=== PATIENT | female | born 1970 | race Caucasian/White ===

== ENCOUNTER 2017-11-09 11:32 | Emergency (ER) | payer BC, MEDICAID ==
--- NOTE | 2017-11-09 13:25 | EDM.PDOC ---
ED HPI GENERAL MEDICAL PROBLEM - General Chief Complaint: Chest Pain Stated Complaint: CHEST PAIN Time Seen by Provider: 11/09/17 11:46 Source of Information: Reports: Patient History Limitations: Reports: No Limitations - History of Present Illness INITIAL COMMENTS - FREE TEXT/NARRATIVE: The patient presents with chest pain. She was doing push ups last night and she felt something pop in her back and the pain radiated to her chest. She had no shortness of breath with it. She says it hurts worse to take a deep breath. She has no fever, chills, cough, abdominal pain, nausea or vomiting. She has no history of heart disease, HTN, hypercholesterolemia, or diabetes. She went to her chiropractor and he did an adjustment and she feels better but he had the patient to come in to be seen. Onset: Sudden Duration: Day(s): (Last night) Location: Reports: Chest Quality: Reports: Sharp Severity: Mild Improves with: Reports: None Worsens with: Reports: Breathing Associated Symptoms: Reports: Chest Pain. Denies: Cough, Fever/Chills, Headaches, Nausea/Vomiting, Shortness of Breath Upper Chest Pain Score (Numeric/FACES): 3 - Related Data Allergies Allergy/AdvReac Type Severity Reaction Status Date / Time No Known Allergies Allergy Verified 11/09/17 11:45 Home Meds: Home Meds Ascorbate Calcium/Bioflavonoid [Emely-C 500 MG] 1,000 mg PO DAILY 11/09/17 [ History] Ca Carb/D3/Mag Ox/Toilet Attendant/Joe/Zn [Caltrate+D3 Plus Mineral Minis] 1 tab PO DAILY [History] Cyanocobalamin (Vitamin B-12) [Vitamin B-12] 0 mg PO DAILY 11/09/17 [History] Multivitamin [Multi-Day Vitamins] 1 tab PO DAILY 11/09/17 [History] Past Medical History HEENT History: Reports: Cataract, Impaired Vision Other HEENT History: wears eyeglasses. Respiratory History: Reports: Bronchitis, Recurrent Genitourinary History: Reports: UTI, Recurrent [employer] History: Reports: Psychiatric History: Reports: Anxiety - Infectious Disease History Infectious Disease History: Reports: Chicken Pox, Measles - Past Surgical History HEENT Surgical History: Reports: Cataract Surgery, Retinal Social & Family History - Tobacco Use Smoking Status *Q: Never Smoker Second Hand Smoke Exposure: No - Caffeine Use Caffeine Use: Reports: None - Recreational Drug Use Recreational Drug Use: No ED ROS GENERAL - Review of Systems Review Of Systems: See Below Constitutional: Reports: No Symptoms HEENT: Reports: No Symptoms Respiratory: Reports: No Symptoms Cardiovascular: Reports: Chest Pain Endocrine: Reports: No Symptoms GI/Abdominal: Reports: No Symptoms : Reports: No Symptoms Musculoskeletal: Reports: No Symptoms Skin: Reports: No Symptoms ED EXAM, GENERAL - Physical Exam Exam: See Below Exam Limited By: No Limitations General Appearance: Alert, No Apparent Distress Ears: Normal External Exam Nose: Normal Inspection Head: Atraumatic, Normocephalic Neck: Normal Inspection Respiratory/Chest: No Respiratory Distress, Lungs Clear, Normal Breath Sounds Cardiovascular: Regular Rate, Rhythm, No Edema, No Murmur GI/Abdominal: Soft, Non-Tender, No Organomegaly, No Mass Back Exam: Normal Inspection Extremities: Normal Inspection EKG INTERPRETATION EKG Date: 11/09/17 Time: 12:10 Rhythm: Other (sinus bradycardia) Rate (Beats/Min): 58 [place]: Normal P-Wave: Present QRS: RBBB ST-T: Elevated (normal early reppol) QT: Normal Course - Vital Signs Last Recorded V/S: Last Vital Signs Temp 98.2 F 11/09/17 11:41 Pulse 70 11/09/17 11:41 Resp 17 11/09/17 11:41 BP 126/80 11/09/17 11:41 Pulse Ox 100 11/09/17 11:41 - Orders/Labs/Meds Orders: Active Orders 24 hr Category Date Time Status Cardiac Monitoring [RC] . DIRECTED Care 11/09/17 12:03 Active EKG Documentation Completion [RC] STAT Care 11/09/17 12:03 Active Chest 2V [CR] Stat Exams 11/09/17 12:03 Taken Labs: Laboratory Tests 11/09/17 11/09/17 11/09/17 Range/Units 11:50 11:50 11:50 WBC 4.42 (3.98-10.04) K/mm3 RBC 4.41 (3.98-5.22) M/mm3 Hgb 14.3 (11.2-15.7) gm/L Hct 42.8 (34.1-44.9) % MCV 97.1 H (79.4-94.8) fl MCH 32.4 H (25.6-32.2) pg MCHC 33.4 (32.2-35.5) g/dl RDW Std Deviation 43.6 (36.4-46.3) fL Plt Count 301 (182-369) K/mm3 MPV 9.4 (9.4-12.3) fl Neut % (Auto) 48.8 (34.0-71.1) % Lymph % (Auto) 36.0 (19.3-51.7) % [place] % (Auto) 9.7 (4.7-12.5) % Eos % (Auto) 4.8 (0.7-5.8) Baso % (Auto) 0.7 (0.1-1.2) % Neut # (Auto) 2.16 (1.56-6.13) K/mm3 Lymph # (Auto) 1.59 (1.18-3.74) K/mm3 [place] # (Auto) 0.43 H (0.24-0.36) K/mm3 Eos # (Auto) 0.21 (0.04-0.36) K/mm3 Baso # (Auto) 0.03 (0.01-0.08) K/mm3 D-Dimer, Quantitative 0.26 (0.19-0.50) mg/L Sodium 139 (136-145) mEq/L Potassium 4.0 (3.5-5.1) mEq/L Chloride 104 (98-107) mEq/L Carbon Dioxide 27 (21-32) mEq/L Anion Gap 12.0 (5-15) BUN 11 (7-18) mg/dL Creatinine 0.9 (0.55-1.02) mg/dL Est Cr Clr Drug Dosing 61.18 mL/min Estimated GFR (MDRD) > 60 (>60) mL/min BUN/Creatinine Ratio 12.2 L (14-18) Glucose 88 (74-106) mg/dL Calcium 9.4 (8.5-10.1) mg/dL Total Bilirubin 1.6 H (0.2-1.0) mg/dL AST 33 (15-37) U/L ALT 30 (14-59) U/L Alkaline Phosphatase 69 (46-116) U/L Troponin I < 0.017 (0.00-0.056) ng/mL Total Protein 7.6 (6.4-8.2) g/dl Albumin 4.4 (3.4-5.0) g/dl Globulin 3.2 gm/dL Albumin/Globulin Ratio 1.4 (1-2) - Re-Assessments/Exams Free Text/Narrative Re-Assessment/Exam: 11/09/17 13:34 I ordered an EKG, CXR and labs. Her EKG shows a sinus bardycardia with no acute changes. Her CXR looks good. Her CBC and CMP look good. Her troponin is negative. She feels good. I feel this is chest wall pain. I will discharge her home. Departure - Departure Time of Disposition: 13:40 Disposition: Home, Self-Care 01 Condition: Good Clinical Impression: Atypical chest pain Referrals: [facility] INDUSTRIAL PSYCHOLOGIST [Primary Care Provider] - Additional Instructions: Take tylenol or motrin for pain. Please return if you are worse. - My Orders Last 24 Hours: My Active Orders 11/09/17 12:03 Cardiac Monitoring [RC] . DIRECTED EKG Documentation Completion [RC] STAT Chest 2V [CR] Stat - Assessment/Plan Last 24 Hours: My Active Orders 11/09/17 12:03 Cardiac Monitoring [RC] . DIRECTED EKG Documentation Completion [RC] STAT Chest 2V [CR] Stat
--- NOTE | 2017-11-09 16:37 | CR ---
Chest: Two views of the chest were obtained. Comparison: No prior chest x-ray available. Heart size and mediastinum are normal. Lungs are clear but hyperinflated. Mild scoliosis is noted within the spine. Impression: 1. Emphysematous change. 2. Nothing acute is appreciated. Diagnostic code #2
== END 2017-11-09 13:50 | disposition home or self-care (01) ==
LOC: JD.ED 11:32
DX: R07.89 Other chest pain (principal); Z79.899 Other long term (current) drug therapy
CPT/HCPCS: 36415; 71046; 71046-26; 80053; 84484; 85025; 85379; 93005; 93010; 99284-25; 99285-25

== ENCOUNTER 2018-08-24 11:10 | Day surgery (SDC) | payer BC ==
[~2018-08-24 11:10] MED LIST: Lidocaine 1%/Sod Bicarbonate in NS 8.4% 1 ML Syringe IDERM PRN; Sodium Chloride 0.9% 10 ML Syringe FLUSH PRN
[2018-08-24] MEDS ORDERED: Midazolam 1 MG/ML 2 ML SDV ONE (11:17)
[2018-08-24] MEDS ORDERED: Lidocaine 1% 4 ML ONE (11:17)
[2018-08-24] MEDS ORDERED: Propofol 200 MG/20 ML SDV ONE ×4 (11:17→13:33)
[2018-08-24] MEDS ORDERED: fentaNYL 100 MCG/2 ML SDV ONE (11:17)
[2018-08-24] MEDS: Lactated Ringers 1,000 ML IV SCH ×2 (11:40→14:49)
--- NOTE | 2018-08-24 11:56 | PCM.PREANE ---
Preanesthetic Assessment - Procedure Proposed Procedure: screen colonoscopy - Anesthesia/Transfusion/Family Hx Anesthesia History: Prior Anesthesia Without Reaction Type of Anesthesia Reaction: Other (see below) (took a long time to wake up) Family History of Anesthesia Reaction: No Transfusion History: No Prior Transfusion(s) - Review of Systems General: No Symptoms Pulmonary: No Symptoms Cardiovascular: No Symptoms Gastrointestinal: No Symptoms Neurological: No Symptoms Other: Reports: None - Physical Assessment NPO Status Date: 08/24/18 NPO Status Time: 04:00 O2 Sat by Pulse Oximetry: 100 Respiratory Rate: 16 Vital Signs: Last Vital Signs Temp 99.2 F 08/24/18 11:20 Pulse 92 08/24/18 11:20 Resp 16 08/24/18 11:20 BP 109/71 08/24/18 11:20 Pulse Ox 100 08/24/18 11:20 Height: 5 ft 8 in Weight: 49.442 kg ASA Class: 1 Mental Status: Alert & Oriented x3 Airway Class: Mallampati = 1 Dentition: Reports: Normal Dentition Thyro-Mental Finger Breadths: 3 Mouth Opening Finger Breadths: 3 ROM/Head Extension: Full Lungs: Clear to Auscultation, Normal Respiratory Effort Cardiovascular: Regular Rate, Regular Rhythm - Allergies Allergies/Adverse Reactions: Allergies Allergy/AdvReac Type Severity Reaction Status Date / Time No Known Allergies Allergy Verified 08/23/18 15:10 - Blood Blood Available: No - Acknowledgements Anesthesia Type Planned: MAC Pt an Appropriate Candidate for the Planned Anesthesia: Yes Alternatives and Risks of Anesthesia Discussed w Pt/Guardian: Yes Pt/Guardian Understands and Agrees with Anesthesia Plan: Yes PreAnesthesia Questionnaire HEENT History: Reports: Cataract, Impaired Vision Other HEENT History: wears eyeglasses. Cardiovascular History: Reports: None Respiratory History: Reports: Bronchitis, Recurrent Gastrointestinal History: Reports: None Genitourinary History: Reports: None, UTI, Recurrent [employer] History: Reports: Other OB/BYN History: irregular menses, menorrhagia Musculoskeletal History: Reports: None Neurological History: Reports: None Psychiatric History: Reports: None Endocrine/Metabolic History: Reports: None Hematologic History: Reports: None Immunologic History: Reports: None Oncologic (Cancer) History: Reports: None Dermatologic History: Reports: None - Infectious Disease History Infectious Disease History: Reports: Chicken Pox, Measles - Past Surgical History Head Surgeries/Procedures: Reports: None HEENT Surgical History: Reports: Cataract Surgery, Retinal Cardiovascular Surgical History: Reports: Varicose GI Surgical History: Reports: None Female Surgical History: Reports: None Male Surgical History: Reports: None Endocrine Surgical History: Reports: None Neurological Surgical History: Reports: None Musculoskeletal Surgical History: Reports: None Oncologic Surgical History: Reports: None Dermatological Surgical History: Reports: None - SUBSTANCE USE Smoking Status *Q: Never Smoker Tobacco Use Within Last Twelve Months: No Second Hand Smoke Exposure: No Days Per Week of Alcohol Use: 0 Recreational Drug Use History: No - HOME MEDS Home Medications: Home Meds Ascorbate Calcium/Bioflavonoid [Emely-C 500 MG] 1,000 mg PO DAILY 11/09/17 [ History] Multivitamin [Multi-Day Vitamins] 1 tab PO DAILY 11/09/17 [History] Ascorbic Acid [Vitamin C] 500 mg PO DAILY 08/23/18 [History] Calcium Carbonate/Vitamin D3 [Liquid Calcium with Vitamin D] 1 cap PO BID [History] Folic Acid 4,000 mcg PO DAILY 08/23/18 [History] - CURRENT (IN HOUSE) MEDS Current Meds: Current Medications Lactated Ringer's (Ringers, Lactated) 1,000 mls @ 125 mls/hr IV ASDIRECTED ANGELA Stop: 08/24/18 23:00 Last Admin: 08/24/18 11:40 Dose: 125 mls/hr Lidocaine/Sodium Bicarbonate (Buffered Lidocaine 1% In Ns 8.4%) 0.25 ml IDERM ONETIME PRN PRN Reason: Prior to IV Start Stop: 08/24/18 18:00 Sodium Chloride (Saline Flush) 10 ml FLUSH ASDIRECTED PRN PRN Reason: Keep Vein Open Stop: 08/24/18 18:00 Discontinued Medications Fentanyl (Sublimaze) Confirm Administered Dose 100 mcg .ROUTE .STK-MED ONE Stop: 08/24/18 11:18 Lidocaine HCl (Xylocaine-Mpf 1%) Confirm Administered Dose 4 mls @ as directed .ROUTE .STK-MED ONE Stop: 08/24/18 11:18 Midazolam HCl (Versed 1 Mg/Ml) Confirm Administered Dose 2 mg .ROUTE .STK-MED ONE Stop: 08/24/18 11:18 Propofol (Diprivan 20 Ml) Confirm Administered Dose 200 mg [place]TE [place] Stop: 08/24/18 11:18
--- NOTE | 2018-08-24 13:53 | PCM48HPAN ---
Post Anesthesia Note - EVALUATION WITHIN 48HRS OF ANESTHETIC Vital Signs in Normal Range: Yes Patient Participated in Evaluation: Yes Respiratory Function Stable: Yes Airway Patent: Yes Cardiovascular Function Stable: Yes Hydration Status Stable: Yes Pain Control Satisfactory: Yes Nausea and Vomiting Control Satisfactory: Yes Mental Status Recovered: Yes Pulse Rate: 60 SaO2: 99 Resp Rate: 16 Temperature: 98 F Blood Pressure: 96/54
[2018-08-24] MEDS ORDERED: Ondansetron 4 MG/2 ML SDV ONE (14:40)
[2018-08-24] MEDS ORDERED: Ondansetron 4 MG/2 ML SDV IVPUSH ONE (14:46)
--- NOTE | 2018-08-25 08:25 | OR ---
DATE OF OPERATION: 08/24/2018 SURGEON: Kolton Hammond MD PREOPERATIVE DIAGNOSIS: Family history of colon cancer, colorectal cancer screening. POSTOPERATIVE DIAGNOSIS: Family history of colon cancer, colorectal cancer screening. OPERATION PERFORMED: Screening colonoscopy. ANESTHESIA: MAC. FINDINGS: She has an extraordinarily redundant left colon. At some point, I had introduced the entirety of the colonoscope into the colon and I had not even reached her transverse colon. We tried multiple re-positions and we were eventually able to advance the scope to the cecum with gentle forward pressure. She has an excellent bowel prep. PATHOLOGY: None. ESTIMATED BLOOD LOSS: None. COMPLICATIONS: None. DISPOSITION: Stable at the end of the procedure. INDICATION: The patient is a 48-year-old female with 2 second-degree relatives with colon cancer in their 70s. She was offered a screening colonoscopy. She has never had a colonoscopy before. She is asymptomatic. She was fully informed of the major risks, benefits, and alternatives. The risks include, but are not limited to perforation of the colon, bleeding, the risks of anesthesia, and the possibility of further surgery. She gave informed consent to what was done. DESCRIPTION OF PROCEDURE: She was placed in the left lateral decubitus position in the Gastro suite. She was given monitored anesthesia. A digital rectal exam was performed, this was unremarkable. I introduced the colonoscope into the rectum with copious lubrication. I advanced the scope with gentle forward pressure keeping the lumen in view at all times. I had quite a lot of difficulty advancing the scope beyond the splenic flexure due to an extraordinarily redundant left colon. Two team members applied pressure to the anterior abdominal wall and several attempts were made to reach the transverse colon and this was unsuccessful. I eventually abandoned the left lateral decubitus position and placed her in a prone position with anterior abdominal pressure. I advanced the scope several times. I gave it 3 more tries and eventually I was able to reach the cecum. I documented the cecum photographically. It took over an hour to reach the cecum. I slowly investigated the mucosa of the colon from the cecum back to the anus in an exam lasting 12 minutes. There were no polyps identified. No mucosal lesions. No strictures. No diverticulosis. At the end of the procedure, the scope was withdrawn. Air was evacuated on the way out. PLAN: Because of the 2 second-degree relatives with colon cancer, she is at mild increased risk, placing her on a 5-year plan. JOSE MARIA /[id number]
== END 2018-08-24 15:40 | disposition home or self-care (01) ==
LOC: JD.SDS 11:10
PROVIDERS: ATTEND Surgery
DX: Z12.11 Encounter for screening for malignant neoplasm of colon (principal); Z80.0 Family history of malignant neoplasm of digestive organs; Z87.42 Personal history of other diseases of the female genital tract
CPT/HCPCS: 00812; J2001; J2250; J2405; J2704; J3010; J7120

== ENCOUNTER 2022-10-15 21:24 | Emergency (ER) | payer OTHER ==
[2022-10-15] MEDS ORDERED: Lidocaine 1% 10 ML MDV INJECT ONE (22:12)
[2022-10-15] MEDS ORDERED: Cephalexin 500 MG Cap PO ONE (22:55)
[2022-10-15] MEDS ORDERED: Sulfamethoxazole/Trimethoprim 800-160 MG Tab PO ONE (22:55)
== END 2022-10-15 23:40 | disposition home or self-care (01) ==
LOC: JD.ED 21:24
DX: H00.11 Chalazion right upper eyelid (principal); Z79.899 Other long term (current) drug therapy
CPT/HCPCS: 67700; 99283; A9270; J3490

== ENCOUNTER 2023-08-26 20:35 | Emergency (ER) | payer OTHER | END 2023-08-26 21:21 | disposition home or self-care (01) | LOC: JD.ED 20:35 | DX: R20.2 Paresthesia of skin (principal); Z77.098 Contact with and (suspected) exposure to other hazardous, chiefly nonmedicinal, chemicals; Z79.899 Other long term (current) drug therapy | CPT/HCPCS: 99283 ==

== ENCOUNTER 2024-11-07 18:09 | Emergency (ER) | payer OTHER ==
[2024-11-07] MEDS ORDERED: Sodium Chloride 0.9% 10 ML Syringe FLUSH PRN (18:39)
[2024-11-07 19:21] LABS: BASOPHILS ABSOLUTE AUTO 0.0 K/mm3 (0.0-0.2); BASOPHILS PERCENT AUTO 0.1 % (0.0-1.0); EOSINOPHILS ABSOLUTE AUTO 0.0 K/mm3 (0.0-0.4); EOSINOPHILS PERCENT AUTO 0.0 % (0.0-6.0); IMMATURE GRAN ABSOLUTE AUTO 0.02 K/mm3 (0.00-0.05); IMMATURE GRAN PERCENT AUTO 0.2 % (0.0-0.4); LYMPHOCYTES ABSOLUTE AUTO 0.7 K/mm3 (1.0-4.8); LYMPHOCYTES PERCENT AUTO 7.5 % (24.0-44.0); MEAN PLATELET VOLUME 8.8 fl (9.4-12.3); MONOCYTES ABSOLUTE AUTO 0.4 K/mm3 (0.0-0.8); MONOCYTES PERCENT AUTO 4.4 % (0.0-8.0); NEUTROPHILS ABSOLUTE AUTO 8.3 K/mm3 (1.8-7.7); NEUTROPHILS PERCENT AUTO 87.8 % (41.0-71.0); NRBC ABSOLUTE 0.00 (0.00-0.02); NRBC PERCENT 0.0 % (0.0-0.2); PLATELET COUNT,PLT 256 K/mm3 (150-400); RED BLOOD CELL COUNT 4.19 M/mm3 (4.10-5.30); WHITE BLOOD CELL COUNT,WBC 9.42 K/mm3 (3.9-11.3)
[2024-11-07 19:43] LABS: APPEARANCE,URINE CLEAR (Clear); GLUCOSE,URINE NEGATIVE (Negative); OCCULT BLOOD,URINE NEGATIVE (Negative)
[2024-11-07 19:55] LABS: A/G RATIO 1.4 (1-2); ALANINE AMINOTRANSFERASE,ALT 41.0 U/L (14-59); ASPARTATE AMNIOTRANSFERASE,AST 26.0 U/L (15-37); BILIRUBIN TOTAL 1.5 mg/dL (0.2-1.0); BLOOD UREA NITROGEN,BUN 12.0 mg/dL (7-18); CARBON DIOXIDE,CO2 23.0 mEq/L (21-32); CHLORIDE,CL 101.0 mEq/L (98-107); CREATININE 0.7 mg/dL (0.55-1.02); EST CRCL DRUG DOSING (CG) 71.33 mL/min; ESTIMATED GFR 101.0 mL/min (>60); GLUCOSE RANDOM 179.0 mg/dL (70-99); POTASSIUM,K 4.0 mEq/L (3.5-5.1); PROTEIN TOTAL,TP 6.4 g/dl (6.4-8.2); SODIUM,NA 134.0 mEq/L (136-145)
== END 2024-11-07 21:41 | disposition home or self-care (01) ==
LOC: JD.ED 18:09
DX: R42 Dizziness and giddiness (principal); E86.0 Dehydration
CPT/HCPCS: 36415; 80053; 81003; 83690; 84484; 85025; 86140; 93005; 99284; A9270; 93010; 99283